=== PATIENT | male | born 1990 | race Caucasian/White ===

== ENCOUNTER 2016-07-23 17:45 | Emergency (ER) | payer MEDICARE | END 2016-07-23 18:41 | disposition home or self-care (01) | LOC: ER1 17:45 | DX: H00.035 Abscess of left lower eyelid (principal); F17.210 Nicotine dependence, cigarettes, uncomplicated; Z88.8 Allergy status to other drugs, medicaments and biological substances | CPT/HCPCS: 96372; 99283; J1100 ==

== ENCOUNTER 2020-12-13 11:35 | Emergency (ER) | payer SELFPAY ==
[~2020-12-13 11:35] MED LIST: AUGMENTIN 875-1 EACH PO; BACTRIM DS TAB1 EACH PO; BENADRYL25 MG PO; ERYTHROMYCIN O3.5 GM EYELF; ERYTHROMYCIN O3.5 GM OD; IBU800 MG PO; IBUPROFEN600 MG PO; KEFLEX CAP 500500 MG PO; NORFLEX 100 MG100 MG PO
== END 2020-12-13 13:39 | disposition left against medical advice (07) ==
LOC: ER1 11:35
DX: Z53.21 Procedure and treatment not carried out due to patient leaving prior to being seen by health care provider (principal)